=== PATIENT | female | born 1960 | race Caucasian/White ===

== ENCOUNTER 2025-07-06 13:07 | Emergency (ER) | payer MEDICARE, SELFPAY ==
[2025-07-06 13:15] VITALS: BP 157/107
[2025-07-06 13:31] LABS: Hematocrit 44.4 % (37.0-47.0); Hemoglobin 14.6 g/dL (12.0-16.0); Mean Corp Hgb Conc. 32.9 g/dL (33.0-37.0); Mean Corpuscular Volume 91.2 fL (81.0-99.0); Nucleated Red Blood Cells % 0 %; Platelet Count 283 10^3/uL (130-400); Red Cell Dist. Width 12.6 % (11.5-14.5)
[2025-07-06 13:41] LABS: ALT (SGPT) 20 U/L (0-35); AST (SGOT) 24 U/L (14-36); Albumin 4.9 g/dl (3.5-5.0); Alkaline Phosphatase 43 U/L (38-126); Blood Urea Nitrogen 25 mg/dl (7-17); Calcium 10.5 mg/dl (8.4-10.2); Carbon Dioxide 33 mmol/L (22-30); Chloride 100 mmol/L (98-107); Glucose 96 mg/dl (70-99); Potassium 4.5 mmol/L (3.5-5.1); Sodium 138 mmol/L (135-145); Total Protein 8.0 g/dl (6.3-8.2); eGFR > 60.00
[2025-07-06 14:24] VITALS: BP 142/99
[2025-07-06 14:25] VITALS: BP 142/99
[2025-07-06 15:00] VITALS: BP 143/95
--- NOTE | 2025-07-06 15:36 | ED.GENMED ---
History of Present Illness
General
Chief Complaint: Blood Pressure Problem
Source: patient
Exam Limitations: none
Time Seen by Provider: 07/06/25 14:21
Nursing documentation reviewed up to this point in time: agreed with
History of Present Illness
History of Present Illness:
64-year-old female presenting to the emergency department today with concern of ongoing elevated blood pressure and apparent abnormal EKG according to urgent care. To have a UTI treated at urgent care 2 days ago was started on cefuroxime and was
noted to have high blood pressure at the time she was invited to come back to urgent care today where her blood pressure was continually elevated and EKG had apparent 'abnormalities'. She denies any chest pain shortness of breath or any numbness or
weakness at this time.
Review of Systems
Review of Systems
Allergies reviewed?: Yes
All Other Systems: ROS reviewed and negative except as documented in HPI and ROS
Phy Exam
Physical Exam
Physical Exam:
GENERAL: Alert , in no apparent distress
EYE: pupils equal and reactive
NECK: Supple, no significant adenopathy.
ENT: o/p clr, mmm.
CARDIAC: Regular rate and rhythm .
LUNGS: Clear breath sounds bilaterally, no acute respiratory distress, no wheezes/rales/rhonchi
ABDOMEN: Soft, without focal tenderness, no r/g, no cvat
NEUROLOGICAL: Alert and oriented, no focal neuro deficits
SKIN: Warm and dry, skin intact.
MUSCULOSKELETAL: No edema, well perfused.
PSYCH: Normal and appropriate interaction.
Course
Orders/Labs/Results
Orders:
Orders
07/06/25 13:08
EKG [Electrocardiogram (*1)] Urgent
Reason for Study: CAD
EKG- Treatment ONCE
07/06/25 13:21
CBC/With Diff [Complete Blood Count/With Diff] Urgent
CMP [Comprehensive Metabolic Panel] Urgent
Abnormal Lab Results
07/06/25
13:21
MCHC 32.9 L g/dL
(33.0-37.0)
MPV 11.1 H fL
(7.4-10.4)
Absolute Monos (auto) 0.9 H 10^3/uL
(0.1-0.6)
Monocytes % 10.5 H %
(1.7-9.3)
Carbon Dioxide 33 H mmol/L
(22-30)
BUN 25 H mg/dl
(7-17)
Calcium 10.5 H mg/dl
(8.4-10.2)
07/06/25 13:21
07/06/25 13:21
Vital Signs
Initial and Last Documented VS:
Initial Vital Signs
Temp Pulse Resp BP Pulse Ox
98.5 F 92 15 157/107 95
07/06/25 13:15 07/06/25 13:15 07/06/25 13:15 07/06/25 13:15 07/06/25 13:15
Last Documented Vital Signs
Temp Pulse Resp BP Pulse Ox
98.5 F 77 19 143/95 95
07/06/25 13:15 07/06/25 15:30 07/06/25 15:15 07/06/25 15:00 07/06/25 15:36
MDM/Problems Addressed
MDM/Problems Addressed:
64-year-old female presenting to the emergency department with concerns of ongoing high blood pressure. This improved here without specific treatment to the 140s over 90s. She did have a record of elevated blood pressures over the past few days.
She was started on the low-dose lisinopril otherwise no symptoms consistent with hypertensive emergency stable for outpatient management. Return precautions given.
*Pulse Oximetry
SaO2: 95
Oxygen Mode of Delivery: Room air
Patient hypoxic: no (95)
*Critical Care Note
Total Time (30-74mins, 75-104mins- exclusive of procedures): Not Applicable
ED Attending Note
-
Portions of this chart may have been created with voice recognition software.� Occasional wrong word or��sound alike� substitutions may have occurred due to the inherent limitations of voice recognition software.
Discharge Plan
Departure
Patient Disposition: Home (Routine Discharge)
Date of Disposition: 07/06/25
Time of Disposition: 15:36
Patient with high blood pressure during this ER visit?: Yes
Condition: Good
Covid-19: Not Applicable
Discharge Problem:
BP (high blood pressure)
Instructions: High Blood Pressure (DC)
Prescriptions:
New
lisinopril 5 mg tablet
5 mg PO DAILY 14 Days Qty: 14 0RF
Referrals:
Raheem Espinosa MD [Active, Cardiology] - Follow up in 5-7 days
Activity Restrictions/Additional Instructions:
You came to the emergency department today with concerns of elevated blood pressure. Here had a reassuring assessment. Blood pressure did improve during her ER stay. Please follow closely with cardiology or primary care doctor for further
management. Return for any worsening, new or concerning symptoms.
Interventions
Interventions:
*Risk Screen - Suicide Last Done: 07/06/25 13:15
*General Assessment Last Done: 07/06/25 13:15
*Neglect/Abuse Screening Last Done: 07/06/25 13:15
*ED COVID-19 Vaccine History Last Done: 07/06/25 13:15
*ED Influenza Vaccine History Last Done: 07/06/25 13:15
*Nursing Disposition Last Done: 07/06/25 15:50
ED- Cardiac Assessment Last Done: 07/06/25 14:25
ED- Neurological Assessment Last Done: 07/06/25 14:25
ED- Pulmonary Assessment Last Done: 07/06/25 14:25
Discharge Date and Time
Discharge Date/Time: 07/06/25 15:50
Print Language: JAPANESE
== END 2025-07-06 15:50 | disposition home or self-care (01) ==
LOC: EMR 13:07
PROVIDERS: Emergency Medicine; EMERGENCY PHYSICIAN Emergency Medicine; FAMILY PHYSICIAN Family Medicine
DX: I10 Essential (primary) hypertension (principal); R94.31 Abnormal electrocardiogram [ECG] [EKG]; Z79.899 Other long term (current) drug therapy
CPT/HCPCS: 99284; 80053; 85025; 93005